=== PATIENT | male | born 1970 | race African-American/Black ===

== ENCOUNTER 2017-08-03 05:03 | Day surgery (SDC) | payer BC ==
[2017-08-02 10:48] VITALS: BMI 24.8
[~2017-08-03 05:03] MED LIST: BUPIVACAINE HCL/PF 0.5% (5MG/ML) 10 ML VIAL IJ ONE
--- NOTE | 2017-08-03 09:16 | HP ---
History & Physical Update - History History: No Change - Physical Physical: No Change - Assessment Assessment: No Change - Plan Plan: No Change
[2017-08-03] MEDS ORDERED: MIDAZOLAM HCL 2 MG/2 ML SINGLE DOSE VIAL ONE (11:07)
[2017-08-03] MEDS ORDERED: PROPOFOL 20 ML ONE ×2 (11:07→11:29)
[2017-08-03] MEDS ORDERED: ceFAZolin SODIUM 1 GM VIAL IVPB ONE (11:24)
[2017-08-03] MEDS ORDERED: LIDOCAINE HCL/PF 2% SDV 5ML VIAL ONE (11:26)
[2017-08-03] MEDS ORDERED: ceFAZolin SODIUM 1 GM VIAL ONE (11:28)
[2017-08-03] MEDS ORDERED: DEXAMETHASONE SOD PHOSPHATE 4 MG/1 ML VIAL ONE (11:35)
[2017-08-03] MEDS ORDERED: KETOROLAC TROMETHAMINE 30 MG/1 ML VIAL ONE (11:56)
[2017-08-03] MEDS ORDERED: BUPIVACAINE HCL/PF 0.5% (5MG/ML) 10 ML VIAL IJ ONE (12:30)
--- NOTE | 2017-08-03 12:39 | OP ---
Operative Note - Note: Operative Date: 08/03/17 Pre-Operative Diagnosis: Right inguinal hernia. Operation: Repair of right inguinal hernia with plug and mesh. Findings: Right inguinal hernia, indirect type. Post-Operative Diagnosis: Same as Pre-op Surgeon: Winston Carpenter Anesthesiologist/HAND MOUNTER: Nikolai Alcala Anesthesia: General Specimens Removed: Hernial sac. Estimated Blood Loss (mls): 5 Operative Report Dictated: Yes
[2017-08-03] MEDS ORDERED: ONDANSETRON 4 MG/2 ML VIAL IVPUSH PRN (12:48)
[2017-08-03] MEDS ORDERED: oxyCODONE HCL 5 MG TABLET PO PRN (12:48)
[2017-08-03] MEDS ORDERED: LACTATED RINGERS SOLUTION 1,000 ML IV SCH (13:00)
--- NOTE | 2017-08-03 13:46 | OP ---
DATE OF OPERATION: 08/03/2017 PREOPERATIVE DIAGNOSIS: Right inguinal hernia. POSTOPERATIVE DIAGNOSIS: Right indirect inguinal hernia. OPERATIVE PROCEDURE: Repair of right inguinal hernia with plug and mesh. SURGEON: Jorge Carpenter MD ANESTHESIA: General anesthesia. ANESTHESIOLOGIST: [place] MD OPERATIVE DESCRIPTION: This 47-year-old man has pain and swelling in the right groin. He was found to have a right inguinal hernia. He is reporting for repair of the right inguinal hernia. Consent was obtained. Risks, benefits, and complications have been discussed with the patient. He was then brought to the operating room. He was given general anesthesia. He was given 1 g of Ancef. The right groin and scrotum were painted and draped. A timeout was called. An incision was made in the right groin along a skin crease. It was deepened through the skin, subcutaneous tissue, Jadiel fascia, and the external oblique aponeurosis. The ilioinguinal nerve was identified and preserved throughout the procedure. The cord structures were then identified around a 1/2-inch Morehouse drain. The cord structures were then by incising the internal and external spermatic muscle and fascia. There was a direct and indirect sac. This was then from the rest of the cord structures all the way to the internal ring. The sac was then opened. There was no bowel within the sac. The sac was transfixed at the level of internal ring with two 2-0 Vicryl sutures. The sac distal to the transfixation suture was then excised, sent to Pathology. A large plug was then inserted through the internal ring, placed behind the transversus abdominis muscle and fascia. This was anchored to the posterior wall of the internal oblique and transversus abdominis muscle with two 2-0 Prolene sutures which was carried through the internal oblique and transversus abdominis muscle and fascia, brought through the internal ring, and then brought the outer leaf of the mesh through and through and then reintroduced through the internal ring and brought out through the abdominal wall. Two such sutures were obtained, 1 above and medial to the internal ring, another above and lateral to the internal ring. Once this was placed, the plug was inserted through the internal ring and placed behind the transversus abdominis muscle and fascia. A large mesh was then placed across the internal oblique and the shelving edge of the inguinal ligament. This was anchored at the level of the pubic tubercle with 2-0 Prolene sutures. The inferior leaf of the mesh was placed over the shelving edge of the inguinal ligament and anchored with the ProTack tacking device. The 2-0 Prolene suture holding the plug behind the transversus abdominis muscle and the internal oblique muscle and fascia was brought through the superior leaf of the mesh and Denonvilliers fascia. The lateral suture was passed through both limbs of the mesh as it came around the inguinal ligament. Thus, the defect was adequately covered. Two tackers were placed to anchor the mesh over the internal oblique muscle. Care was taken not to include the ilioinguinal nerve and the iliohypogastric nerves. The wound was irrigated. Hemostasis was satisfactory. Marcaine 0.5% was injected into the wound around the internal ring, around the pubic tubercle, and around the ilioinguinal nerve and the iliohypogastric nerves. The external oblique aponeurosis was approximated with continuous 3-0 Vicryl sutures, Jadiel fascia with buried interrupted 3-0 Vicryl sutures. The subdermal fat was approximated again with buried interrupted 3-0 Biosyn sutures and skin approximated with continuous 4-0 Biosyn sutures in a running subcuticular fashion. Sponge count and instrument count were correct. Dermabond was applied across the skin edges. Patient tolerated the procedure well, was extubated, and taken to the recovery room in satisfactory and stable condition. Alvaro [id number]
[2017-08-03 15:10] VITALS: TEMP 98.7
[2017-08-03 15:51] VITALS: BP 130/75; PULSE 64
--- NOTE | 2017-08-07 13:16 | PATH ---
Surgical Pathology Report Patient Name: SANG ESCALANTE Med. Rec. #: [id number] /Age/Gender: 1970 (Age: 47) / M Account: [id number] Location: [facility] SURGICAL Taken: 08/03/2017 Received: 08/06/2017 Reported: 08/07/2017 Physicians: Jorge Carpenter M.D. Specimen(s) Received RIGHT INGUINAL HERNIA SAC Clinical History Right inguinal hernia Final Diagnosis SOFT TISSUE, RIGHT INGUINAL, EXCISION: HERNIA SAC. Electronically Signed Wong Roe M.D. Gross Description Received in formalin labeled "hernia sac right inguinal," is a 2.0 x 1.5 x 0.8 cm portion of guevara boyd fibromembranous tissue with attached fat. Vascular Surgery Physician sections are submitted in one cassette. 08/06/201708/06/2017
== END 2017-08-03 15:50 | disposition home or self-care (01) ==
LOC: JASU-SURG 05:03
PROVIDERS: ATTEND Specialist
PROC: 0YU50JZ Supplement Right Inguinal Region with Synthetic Substitute, Open Approach (ICD-10-PCS; principal; 2017-08-03 11:30)
DX: K40.90 Unilateral inguinal hernia, without obstruction or gangrene, not specified as recurrent (principal)
CPT/HCPCS: 88302-TC; 94760